=== PATIENT | male | born 1990 | race Caucasian/White ===

== ENCOUNTER → 2020-03-12 09:47 | Outpatient (BNVA) | payer MEDICAID, SELFPAY | PROVIDERS: Family Provider Family Medicine; PCP Family Medicine; Visit Provider Nurse Practitioner Family | DX: Z11.59 Encounter for screening for other viral diseases (principal); G56.01 Carpal tunnel syndrome, right upper limb | CPT/HCPCS: 87635 ==

== ENCOUNTER 2020-03-16 08:53 | Day surgery (SDC) | payer MEDICAID, SELFPAY ==
[2020-03-15 15:49] VITALS: BMI 39.5
[2020-03-16 09:03] VITALS: BP 139/77; PULSE 60; RESP 16; TEMP 36.6; O2SAT 99
[2020-03-16] MEDS: CELEcoxib 200 mg Capsule 400 MG PO (09:34)
[2020-03-16] MEDS: sodium chloride 0.9% 1,000 ML 30 ML IV (09:35)
--- NOTE | 2020-03-16 09:41 | ANES.PREANE2 ---
Pre-Anesthetic Assessment Pre-Anesthetic Assessment: Height/Weight: Height 1.73 m Weight 117.934 kg Temp Pulse Resp BP Pulse Ox 98 F 60 16 139/77 99 03/16/20 09:03 03/16/20 09:03 03/16/20 09:03 03/16/20 09:03 03/16/20 09:03 Preop Diagnosis: Right carpal tunnel syndrome Proposed Procedure: Operation Date: 03/16/20 10:30 Proposed Procedures p Right Carpal Tunnel Release [id number] G56.01(Right) - Yvette Cadena MD Familial anesthetic complications: None Was Beta Rula taken within 24 hours: N/A Last intake: Intake Last Liquid Date 03/15/20 Last Liquid Time 17:00 Last Solid Date 03/15/20 Last Solid Time 17:00 Social: Social History: No alcohol and No tobacco Exam: Pre-Anes Outpt Exam: alert, oriented x 3, clear to auscultation bilaterally and regular rate & rhythm Airway: Cervical ROM: WNL MP: 4 Dentition: Full Additional comments: large neck, full wynn GI: GI: GERD Metabolic: Metabolic: Morbid obesity Neuropsych: Comments: hereditary spastic paraplegia/muscular dystrophy - uses wheelchair for lower extremity weakness/stiffness Anesthetic Plan: ASA status: 3 Anesthesia: MAC and Regional (specify below) Other: [place] block Risk of > 500 ml blood loss (7ml/kg in children): No Meds/Allergies Current Medications: Current Medications Generic Name Dose Route Start Last Admin Trade Name Freq PRN Reason Stop Dose Admin Sodium Chloride 1,000 mls @ 30 ml s/hr 03/16/20 09:00 03/16/20 09:35 Sodium Chloride 0.9% IV 03/17/20 08:59 30 mls/hr .Q24H ANICETO Administration PFSH Anesthesia PFSH: Medical History (Updated 03/12/20 @ 13:18 by Yvette Cadena MD) Arthritis of both knees Arthritis of left acromioclavicular joint Carpal tunnel syndrome, bilateral Rotator cuff impingement syndrome Surgical History History of carpal tunnel release Social History Smoking and tobacco status: current every day smoker cigarettes Quit status (tobacco): has tried quititng Alcohol intake: current Alcohol intake frequency: holidays/special occasions only Data Anesthesia Cardiac Studies: No Data to Display
--- NOTE | 2020-03-16 09:55 | W.PM.OPSUD ---
Surgery/Procedure H&P Update DATE OF PROCEDURE: March 16, 2020 DATE H&P PERFORMED: 03/12/20 H&P UPDATE INFORMATION: I have reviewed H&P completed within last 30 days, I have examined patient prior to procedure, No changes to prior documentation and H&P is in [facility] on date indicated PREOP DIAGNOSIS: Right carpal tunnel syndrome PLANNED PROCEDURE: Operation Date: 03/16/20 10:30 Proposed Procedures p Right Carpal Tunnel Release [id number] G56.01(Right) - Yvette Cadena MD Related Problem List Diagnoses (1) Right carpal tunnel syndrome:
[2020-03-16 10:05] LABS: Basophils # 0.1 10^3/uL (0.0-0.1); Basophils % 0.7 %; Eosinophils # 0.1 10^3/uL (0.0-0.8); Eosinophils % 0.6 %; Hematocrit 47.2 % (42.0-52.0); Hemoglobin 15.5 g/dL (11.7-16.6); Lymphocytes # 2.1 10^3/uL (0.8-4.8); Lymphocytes % 23.8 %; Mean Corpuscular HGB Conc 32.8 g/dL (30.0-36.0); Mean Corpuscular Hemoglobin 29.9 pg (28.0-34.0); Mean Corpuscular Volume 90.9 fL (80-94); Mean Platelet Volume 9.1 fL (7.4-10.4); Monocytes # 0.7 10^3/uL (0.2-0.9); Monocytes % 7.5 %; Neutrophils # 6.05 10^3/uL (1.8-7.7); Neutrophils % 67.2 %; Nucleated Red Blood Cells % 0 %; Platelet Count 360 10^3/cmm (130-400); Red Blood Count 5.19 10^6/uL (4.1-5.3); Red Cell Distribution Width 12.5 % (12.1-15.1)
[2020-03-16 10:29] LABS: Alanine Aminotransferase 17 U/L (0-41); Albumin Level 4.3 g/dL (3.5-5.2); Alkaline Phosphatase 65 IU/L (40-130); Aspartate Amino Transferase 21 U/L (0-40); Blood Urea Nitrogen 10 mg/dL (6-20); Calcium 9.3 mg/dL (8.5-10.5); Carbon Dioxide 26 mmol/L (22-29); Chloride 99 mmol/L (98-107); Globulin 2.8 g/dL (1.3-4.6); Glomerular Filtration Rate 196.6 mL/min (90-130); Glucose 94 mg/dL (65-115); Osmolality Calculated 277 mOsm/kg (285-295); Sodium 134 mmol/L (136-145); Total Bilirubin 0.7 mg/dL (0.15-1.2); Total Protein 7.1 g/dL (6.6-8.7)
[2020-03-16 10:34] LABS: Anion Gap 12.6 (5-19); Potassium 3.6 mmol/L (3.5-5.1)
--- NOTE | 2020-03-16 11:03 | PM.OP ---
Operative Report Date of procedure: March 16, 2020 Pre-op Diagnosis: Right carpal tunnel syndrome Post-op diagnosis: same Post-op Findings: Compression across the carpal canal with fibrous changes within the canal Procedure Done: Right carpal tunnel release Specimens removed/disposition: None Pathology: none sent Surgeon: Yvette Cadena Bindery Machine Setter: None Anesthesia: MAC (With Deisy block) Estimated blood loss (mL): 5 Tourniquet time (min): 30 Tourniquet time: At 250 mmHg IV fluids (mL): 700 Urine output (mL): 0 Urine output: No Love Complications: None Findings: Thickening of the transverse carpal ligament with compression across the median nerve. There also were fibrous changes within the canal. Condition: stable Disposition: same day Brief History: This 29-year-old gentleman presented with complaints of right carpal tunnel syndrome. Approximately a year ago, the patient underwent left carpal tunnel release and this was very successful for him. He presented to the office with complaints similar to the other side, and he had electrodiagnostic findings consistent with carpal tunnel. He therefore wished to proceed with right carpal tunnel release. Risks and complications were discussed with him. Questions were answered. Procedure: The patient was brought to the operating theater. The patient had a Deisy block with MAC. The tourniquet was elevated to 250 mmHg for a total tourniquet time of 30 minutes. The patient was also given Ancef 2 g preoperatively. The arm was then prepped and draped with DuraPrep in usual fashion with the arm draped free. A surgical pause was performed. At the time, the surgical pause, we confirmed the site and side of surgery. We also confirmed the patient's identity, appropriate and timely administration of preoperative antibiotics and preoperative surgical markings. An incision was then made along the thenar crease. The incision crossed the wrist joint in a curvilinear fashion. Dissection continued through skin and soft tissues using a scalpel. The palmaris longus was identified along with the transverse carpal ligament. Each of these was released carefully to avoid injury to the median nerve. We were able to dissect gently into the carpal canal which was noted to be quite tight with significant compression across the median nerve. The nerve was visualized and was an hourglass shape. The canal was subsequently palpated to assure there was no bony encroachment upon the canal. The canal was then palpated distally and proximally to assure that my small finger was passed easily without impingement. Finding this to be so, attention was directed to closure. The wound was irrigated with ropivacaine plain. It was then closed with 3-0 nylon in an interrupted mattress fashion. Sterile dressing was then placed consisting of Xeroform gauze, fluffed fluffs, sterile soft roll, a volar splint, and an Jorgito wrap. The tourniquet was released after 30 minutes. There were no complications. There were no specimens. The procedure was well tolerated. Plan is the patient will be discharged home. Associated Problem List Diagnoses (1) Right carpal tunnel syndrome:
[2020-03-16 11:07] VITALS: BP 133/93; PULSE 79; RESP 16; TEMP 36.2; O2SAT 99
[2020-03-16] MEDS: HYDROcodone-acetaminophen 5-325 mg Tablet 1 TAB PO (11:28)
[2020-03-16 11:29] VITALS: BP 163/88; PULSE 69; RESP 18; O2SAT 99
--- NOTE | 2020-03-16 18:39 | ANE.PACU2 ---
Inpatient post-anesthesia follow up: Airway intact: Yes Vital signs: Temperature 97.1 F Pulse Rate 69 Respiratory Rate 18 Blood Pressure 163/88 Pulse Oximetry 99 Oxygen Delivery Me thod Room Air Oxygen Flow Rate Fraction of Inspir ed Oxygen Hydration adequate: Yes Nausea and vomiting: No Pain level: 1 Mental status: Baseline
== END 2020-03-16 12:22 | disposition home or self-care (01) ==
PROVIDERS: PCP Family Medicine; Visit Provider Specialist
PROC: (CPT 64721; principal; 2020-03-16 10:20)
DX: G56.01 Carpal tunnel syndrome, right upper limb (principal); K21.9 Gastro-esophageal reflux disease without esophagitis; E66.01 Morbid (severe) obesity due to excess calories; Z68.39 Body mass index [BMI] 39.0-39.9, adult; Z99.3 Dependence on wheelchair; F17.210 Nicotine dependence, cigarettes, uncomplicated; M17.0 Bilateral primary osteoarthritis of knee; M19.212 Secondary osteoarthritis, left shoulder
CPT/HCPCS: 64721; 12345; 36415; 80053; 85025; 96365; J0131; J0690; J3010; J3490; J7030

== ENCOUNTER 2023-05-27 10:50 | Outpatient (CLI) | payer MEDICAID, SELFPAY ==
--- NOTE | 2023-05-27 10:54 | XRR_ITS ---
PROCEDURE INFORMATION: Exam: XR Right Shoulder Exam date and time: 05/27/2023 11:00 AM Age: 32 years old Clinical indication: Pain; Shoulder; Bilateral; Additional info: Right shoulder pain TECHNIQUE: Imaging protocol: Radiologic exam of the right shoulder. Views: 2 or more views. COMPARISON: No relevant prior studies available. FINDINGS: Bones/joints: Normal. Soft tissues: Normal. XR/XR shoulder RT min 2V* [id number] IMPRESSION: No acute findings.
--- NOTE | 2023-05-27 10:54 | XRR_ITS ---
PROCEDURE INFORMATION: Exam: XR Left Shoulder Exam date and time: 05/27/2023 11:00 AM Age: 32 years old Clinical indication: Pain; Shoulder; Bilateral; Additional info: Left shoulder pain TECHNIQUE: Imaging protocol: Radiologic exam of the left shoulder. Views: 2 or more views. COMPARISON: No relevant prior studies available. FINDINGS: Bones/joints: Normal. Soft tissues: Normal. XR/XR shoulder LT min 2V* [id number] IMPRESSION: No acute findings.
== END 2023-05-27 10:51 | disposition home or self-care (01) ==
LOC: RAD 10:52
PROVIDERS: PCP Nurse Practitioner Family; Visit Provider Specialist
DX: M25.512 Pain in left shoulder (principal); M25.511 Pain in right shoulder
CPT/HCPCS: 73030

== ENCOUNTER 2023-11-07 14:03 | Emergency (ER) | payer MEDICAID, SELFPAY ==
[2023-11-07 14:08] VITALS: BP 149/77; PULSE 83; RESP 17; TEMP 36.9; O2SAT 98; BMI 37.2
--- NOTE | 2023-11-07 14:29 | XRR_ITS ---
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 Views: 2 or 3 views hip with pelvis when performed. COMPARISON: CR XR lumbar spine 2-3V* [id number] 11/07/2023 2:50 PM FINDINGS: Bones/joints: Unremarkable. No acute fracture. Soft tissues: Unremarkable. XR/XR hip LT 2-3V wo/w pel* [id number] IMPRESSION: No acute findings.
--- NOTE | 2023-11-07 14:29 | XRR_ITS ---
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 Views: 2 or 3 views. COMPARISON: CR XR hip LT 2-3V wo/w pel* [id number] 11/07/2023 2:50 PM FINDINGS: Bones/joints: There is normal anatomic alignment of the lumbar spine. No evidence of a fracture or destructive bone lesion. There is a mild levoscoliosis of the lumbar spine. There are anteriorly projecting osteophytes from the endplates of the lumbar vertebral bodies. Mild disc space narrowing at L5-S1. Soft tissues: Unremarkable. XR/XR lumbar spine 2-3V* [id number] IMPRESSION: Mild chronic degenerative disc disease at L5-S1.
[2023-11-07] MEDS: ketorolac 60 mg/2 mL INJ IM (15:57)
[2023-11-07] MEDS: dexamethasone 10 mg/mL INJ IM (15:57)
[2023-11-07] MEDS: orphenadrine 30 mg/mL Inj 2 mL 60 MG IM (15:57)
--- NOTE | 2023-11-07 16:42 | W.ED.EXTPRO ---
HPI - Extremity Problem General: Chief complaint: Extremity Problem,Nontraumatic Stated complaint: back and left leg pain Time Seen by Provider: 11/07/23 14:48 Source: patient Mode of arrival: wheelchair Limitations: no limitations History of Present Illness: Patient is a 33-year-old male with history of spastic paraplegia who presents to the emergency department complaining of chronic low back pain and left hip pain. States the back pain was exacerbated recently while trying to lift himself into his truck. He reports a history of multiple orthopedic surgeries as well as the hereditary paraplegia, states that he is essentially wheelchair-bound and has been for the past few years. He notes that his wheelchair right now is too small for him and there is a bar that digs into his hip, believes this is causing his hip pain. There is no trauma to report or significant inciting injuries. No specific remedies reported and he is denying any distal radiation of the pain. No other symptoms to report at this time. MD Complaint: joint pain (Left hip/low back) Onset (ago): month(s) Pain Consistency: constant Location: left Radiation: none Relieving factors: rest Exacerbating factors: other (His wheelchair) Associated symptoms: Deny chest pain, fever(s) or rash Review of Systems General: Reports: 10 or more systems reviewed and unremarkable except in HPI and below Const: Denies: fever(s) or chills Card: Denies: chest pain Resp: Denies: dyspnea or productive cough GI: Denies: abdominal pain, nausea, vomiting or diarrhea : Denies: flank pain Musc: Reports: back pain and joint pain; Denies: neck pain, extremity pain, extremity swelling, joint swelling, joint redness, joint warmth, limited range of motion or muscle weakness Skin/Breast: Denies: rash Neuro: Denies: headache(s) PFSH ED PFSH: Medical History Hereditary spastic paraplegia Obesity (BMI 30-39.9) Chronic pain in shoulder Chronic back pain greater than 3 months duration [facility] appointment 05/04/2023 Irritability and anger Scoliosis Insomnia Anxiety and depression Arm numbness left Injury of left rotator cuff Knee pain Right carpal tunnel syndrome 03/16/2020 surgery Rotator cuff impingement syndrome Arthritis of left acromioclavicular joint Arthritis of both knees Surgical History H/O knee surgery History of carpal tunnel release Right side 03/16/2020 and left side 03/2019 Dr. Cadena Social History Quit status (tobacco/nicotine): has tried quititng Alcohol intake: current Alcohol intake frequency: holidays/special occasions only Substance/Drug Use: never Physical Exam Const: COMMON NORMALS: no acute distress, patient oriented x3, no limitations, healthy appearing, alert and well nourished NUTRITIONAL APPEARANCE: obese HENMT: COMMON NORMALS: normocephalic and atraumatic HEAD & SCALP: normocephalic and atraumatic Neck/C-Spine: COMMON NORMALS: full ROM, supple and no meningeal signs Resp: COMMON NORMALS: normal respiratory effort, No use of accessory muscles and clear to auscultation bilaterally AUSCULTATION: clear to auscultation bilaterally Cardio: COMMON NORMALS: regular rate and regular rhythm RATE: regular rate RHYTHM: regular rhythm Back/Pelvis: OTHER: No significant reproducible tenderness to palpation of the low back. No signs of trauma or overlying skin changes. He does have range of motion at the back but does elicit some pain with lateral rotation. No obvious deformity of the left hip joint. Again there is no significant reproducible tenderness to palpation. Extremity: COMMON NORMALS: normal to inspection, capillary refill normal, no joint enlargement and no clubbing, cyanosis or edema NARRATIVE EXTREMITY EXAM: There is some evidence of atrophy of the bilateral lower extremities, likely secondary to immobilization. Neuro: COMMON NORMALS: patient oriented x3, moves all extremities, no focal motor deficits and no sensory deficits noted SENSORIUM/ORIENTATION: Yes alert MENINGEAL SIGNS: Yes no meningeal signs Skin: COMMON NORMALS: no rashes or lesions noted GENERAL SKIN EXAM: no rashes or lesions noted Course Vital Signs: Vital signs: Vital Signs Temperature 98.4 F 11/07/23 17:19 Pulse Rate 79 11/07/23 17:19 Respiratory Rate 16 11/07/23 17:19 Blood Pressure 138/78 11/07/23 17:19 Pulse Oximetry 99 11/07/23 17:19 Oxygen Delivery Me thod Room Air 11/07/23 14:08 MDM - Extremity (Nontraumatic) Medical Decision Making Patient presented with left low back and left hip pain that has been developing over some time, has a pertinent medical history of spastic paraplegia among other bony/joint etiologies. He is wheelchair-bound and states he has been for the past few years due to these diagnoses. States that his wheelchair has been digging into his hip and he believes this is causing his pain, and also believes that he reinjured his back while attempting to lift himself into a truck. X-ray imaging of the hip/pelvis and lumbar spine did not demonstrate any acute abnormalities. I discussed with patient that he needs to get with primary care to have a refitting for a wheelchair, as it does appear that his wheelchair he is in now is entirely too small for his body habitus. He states he can get into see his primary care next week. He also notes improvement of his pain following steroid injection, Toradol, and Norflex. Because of this I will discharge him home and he will continue taking his medications at home as prescribed. Reasons to return were discussed however. Lab Data Radiology Impressions Hip/Pelvis X-Ray 11/07/23 14:29 IMPRESSION: No acute findings. Lumbar Spine X-Ray 11/07/23 14:29 IMPRESSION: Mild chronic degenerative disc disease at L5-S1. All radiology interpretation(s) finalized by discharge Discharge Plan Discharge Patient Disposition: Home Clinical Impression: Chronic low back pain, Contusion of hip, left Condition: Stable Prescriptions: No Action sertraline [Zoloft] 50 mg tablet 50 mg PO DAILY Qty: 90 3RF omeprazole 40 mg capsule,delayed release(DR/EC) See Rx Instructions .ROUTE .COMPLEX Qty: 90 0RF Dose Instruction: TAKE ONE CAPSULE BY MOUTH ONCE DAILY Rx Instructions: TAKE ONE CAPSULE BY MOUTH ONCE DAILY Discharge Orders: Discharge ED (Routine); Ordered 11/07/23 Ordered By: Sony Wesley Referrals: Payal White NP [Primary Care Provider] - Discharge Diet: Usual diet Discharge Activity: Increase activity as tolerated Patient Instructions: Pain Management Activity Restrictions/Additional Instructions: Follow-up with your primary care provider as discussed for further evaluation, including potential refitting for a new wheelchair. Tylenol and ibuprofen at home for pain. Gentle range of motion exercises as tolerated. Return with any new or worsening. Coding Level of Care Code ED Regulation Supervisor for Romaine Chavira
[2023-11-07 17:19] VITALS: BP 138/78; PULSE 79; RESP 16; TEMP 36.9; O2SAT 99
== END 2023-11-07 17:20 | disposition home or self-care (01) ==
PROVIDERS: Emergency Provider Physician Assistant; PCP Nurse Practitioner Family
DX: G89.29 Other chronic pain (principal); S70.02XA Contusion of left hip, initial encounter; G11.4 Hereditary spastic paraplegia; Z99.3 Dependence on wheelchair; W22.8XXA Striking against or struck by other objects, initial encounter
CPT/HCPCS: 72100; 73502; 96372; 99284; J1100; J1885; J2360

== ENCOUNTER → 2024-02-09 11:18 | Outpatient (BNVA) | payer MEDICAID, SELFPAY | PROVIDERS: PCP Nurse Practitioner Family; Visit Provider Nurse Practitioner | DX: S42.292A Other displaced fracture of upper end of left humerus, initial encounter for closed fracture; V89.2XXA Person injured in unspecified motor-vehicle accident, traffic, initial encounter | CPT/HCPCS: 24500; 73030; 99214 ==

== ENCOUNTER → 2024-02-22 14:59 | Outpatient (BNVA) | payer MEDICAID, SELFPAY | PROVIDERS: PCP Nurse Practitioner Family; Visit Provider Nurse Practitioner | DX: S42.292D Other displaced fracture of upper end of left humerus, subsequent encounter for fracture with routine healing; V89.2XXD Person injured in unspecified motor-vehicle accident, traffic, subsequent encounter | CPT/HCPCS: 73030; 99024 ==

== ENCOUNTER → 2024-03-21 14:40 | Outpatient (BNVA) | payer MEDICAID, SELFPAY | PROVIDERS: PCP Nurse Practitioner Family; Visit Provider Nurse Practitioner | DX: S42.292D Other displaced fracture of upper end of left humerus, subsequent encounter for fracture with routine healing (principal); V89.2XXD Person injured in unspecified motor-vehicle accident, traffic, subsequent encounter | CPT/HCPCS: 73060; 99213 ==

== ENCOUNTER → 2024-05-04 14:25 | Outpatient (BNVA) | payer MEDICAID, SELFPAY | PROVIDERS: PCP Nurse Practitioner Family; Visit Provider Nurse Practitioner | DX: S42.292D Other displaced fracture of upper end of left humerus, subsequent encounter for fracture with routine healing (principal); V89.2XXD Person injured in unspecified motor-vehicle accident, traffic, subsequent encounter | CPT/HCPCS: 73060; 99213 ==

== ENCOUNTER → 2024-08-01 13:48 | Outpatient (BNVA) | payer MEDICAID, SELFPAY | PROVIDERS: PCP Nurse Practitioner Family; Visit Provider Nurse Practitioner | DX: S42.292D Other displaced fracture of upper end of left humerus, subsequent encounter for fracture with routine healing (principal); M75.42 Impingement syndrome of left shoulder; M19.012 Primary osteoarthritis, left shoulder; V89.2XXD Person injured in unspecified motor-vehicle accident, traffic, subsequent encounter | CPT/HCPCS: 20610; 73060; 99214; J1100; J2795; J3301; J9999 ==

== ENCOUNTER → 2024-11-28 11:12 | Outpatient (BNVA) | payer MEDICAID, SELFPAY | PROVIDERS: PCP Nurse Practitioner Family; Visit Provider Nurse Practitioner | DX: M19.012 Primary osteoarthritis, left shoulder (principal); S42.292D Other displaced fracture of upper end of left humerus, subsequent encounter for fracture with routine healing; V89.2XXD Person injured in unspecified motor-vehicle accident, traffic, subsequent encounter | CPT/HCPCS: 20610; J1100; J2795; J3301; J9999 ==

== ENCOUNTER 2025-02-05 09:48 | Emergency (ER) | payer MEDICAID, SELFPAY ==
--- OUTSIDE RECORDS SUMMARY | 2025-02-05 09:52 | XMS_ITS | Encounter Summary ---
Author Organization [facility] Address [address] [place] [address] Care Team Providers Care Assistant Foreman Name Role Phone Jeremi Richmond MD Primary Care Provider [phone] Encounter Details Date Type Department Care Team (Latest Contact Info) Description 01/29/2005 Outpatient Historical [facility] Pediatric Neurology[facility] [address] [place] [id number] [place] [address] [facility] [address] [place] [address] Hered spastic paraplegia (Primary Dx) Social History Tobacco Use Types Packs/Day Years Used Date Smoking Tobacco: Never Assessed Sex and Gender Information Value Date Recorded Sex Assigned at Not on file 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
--- OUTSIDE RECORDS SUMMARY | 2025-02-05 09:52 | XMS_ITS | Encounter Summary ---
Author Organization [email or web address] Address [address] [place] [address] Care Team Providers Care Mold Maintenance Technician Name Role Phone Jeremi Richmond MD Primary Care Provider [phone] Encounter Details Date Type Department Care Team (Latest Contact Info) Description 10/08/2004 Outpatient [facility] [place] [address] [facility] [address] [place] [address] Peroneal muscle atrophy (Primary Dx) Social History Tobacco Use Types Packs/Day Years Used Date Smoking Tobacco: Never Assessed Sex and Gender Information Value Date Recorded Sex Assigned at Not on file 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
--- OUTSIDE RECORDS SUMMARY | 2025-02-05 09:52 | XMS_ITS | Clinical Summary ---
Author Organization [facility] Address [address] [place] [address] Phone Care Team Providers Care Truck Packer Name Role Phone Jeremi Richmond MD Primary Care Provider [phone] Allergies No known active allergies Medications baclofen (LIORESAL) 20 mg Oral tablet Take 20 mg by mouth 2 times daily as needed. Splits tab in half and takes four times a day Active OTHER 7.5 mg by Intravitreal route every 4 hours as needed. [place] 7.5-500 Active Misc. Devices Misc MiscIndications :Hemarthrosis, lower leg,Hemarthrosi s, lower leg Wheelchair with swing away/elevated leg rest. Pt has BCBS please use in network provider 1 Each 0 1 Active Walker Misc MiscIndications :Hemarthrosis, lower leg,Hemarthrosi s, lower leg Rolling Walker 1 Each 0 1 Active HYDROcodone-hector taminophen (NORCO) 7.5-325 mg Oral Tab Take 2 Tabs by mouth every 4 hours as needed. 80 Tab 0 1 Active oxyCODONE CR (OXYCONTIN) 10 mg Oral tablet Take 1 Tab by mouth every 12 hours. 10 Tab 0 1 Active warfarin (COUMADIN) 1 mg Oral tablet Take 1 Tab by mouth daily. 45 Tab 0 1 Active aspirin (WALT) 325 mg Oral tablet Take 1 Tab by mouth daily. 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 Gender Identity Not on file Sexual Orientation Not on file Last Filed Vital Signs Vital Sign Reading Time Taken Comments Blood Pressure 129/84 04/17/2011 6:59 AM SPICE ROOM WORKER Pulse 106 04/17/2011 6:59 AM SPICE ROOM WORKER Temperature 37.1 C (98.7 F) 04/17/2011 6:59 AM SPICE ROOM WORKER Respiratory Rate 16 04/17/2011 6:59 AM SPICE ROOM WORKER Oxygen Saturation 94% 04/17/2011 6:59 AM SPICE ROOM WORKER Inhaled Oxygen Concentration - - Weight 122.5 kg (270 lb) 04/14/2011 10:34 AM SPICE ROOM WORKER Height 177.8 cm (5' 10 ) 04/14/2011 10:34 AM SPICE ROOM WORKER Body Mass Index 38.74 04/14/2011 10:34 AM SPICE ROOM WORKER Plan of Treatment Health Maintenance Due Date Last Done Comments DTAP/TDAP/TD VACCINES (1 - Tdap) 2009 HEPATITIS B VACCINES (1 of 3 - 19+ 3-dose series) 09/26 HPV VACCINES (1 - 3-dose SCDM series) 2017 INFLUENZA VACCINE (#1) 2024 Insurance [facility] MEDICARE PART A AND B MEDICAID [place] Advance Directives For more information, please contact: [phone] * Full Code (Latest Code Status on File) Date Activated Date Inactivated Comments 04/14/2011 6:08 PM 04/17/2011 11:30 AM Care Teams Truck Packer Relationship Specialty Start Date End Date Jeremi Richmond MD PCP - General Internal Medicine 04/15/11
--- OUTSIDE RECORDS SUMMARY | 2025-02-05 09:52 | XMS_ITS | Encounter Summary ---
Author Organization [email or web address] [facility] Address [address] [place] [address] Care Team Providers Care Case Coordinator Name Role Phone Jeremi Richmond MD Primary Care Provider [phone] Encounter Details Date Type Department Care Team (Late st Contact Info) Description 10/15/2004 Outpatient Historical [facility] Neurology [address], [address] [place] [phone] Viktor Appiah MD [address] [place] [id number] Muscle weakness (Primary Dx) Social History Tobacco Use Types Packs/Day Years Used Date Smoking Tobacco: Never Assessed Sex and Gender Information Value Date Recorded Sex Assigned at Not on file 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
--- OUTSIDE RECORDS SUMMARY | 2025-02-05 09:52 | XMS_ITS | Clinical Summary ---
Author Organization [email or web address] Address [address] 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
--- OUTSIDE RECORDS SUMMARY | 2025-02-05 09:52 | XMS_ITS | Encounter Summary ---
Author Organization [facility] Address [address] [place] [address] Care Team Providers Care Legal Secretary Name Role Phone Jeremi Richmond MD Primary Care Provider [phone] Encounter Details Date Type Department Care Team (Latest Contact Info) Description 11/13/2004 Outpatient Historical [facility] Operating Room [address] [place] [id number] [place] [id number] [facility] [address] [place] [address] HERED SPASTIC PARAPLEGIA (CMS/HCC) (Primary Dx) Social History Tobacco Use Types Packs/Day Years Used Date Smoking Tobacco: Never Assessed Sex and Gender Information Value Date Recorded Sex Assigned at Not on file Legal Sex 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[employer] Gender Identity Not on file Sexual Orientation Not on file documented as of this encounter Plan of Treatment Not on file documented as of this encounter Procedures Procedure Name Priority Date/Time Associated Diagnosis Comments MISCELLANEOUS LAB TEST Routine 5 12:35 PM CDT documented in this encounter Results * MISCELLANEOUS LAB TEST (11/13/2004 12:35 PM CDT) MISCELLANEOUS LAB TEST INTERFACE SYSTEM Comment: SPASTIN SPG4 AND ATLASTIN SPG3 SENT OT [facility] SEE SEP REPORT 11/13/2004 12:3 5 PM CDT Octavio Vann MD CHEMISTRY ORDERABLES Fi nal Result INTERFACE SYSTEM Refer to clinic/hospital department documented in this encounter Visit Diagnoses Diagnosis 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
--- OUTSIDE RECORDS SUMMARY | 2025-02-05 09:53 | XMS_ITS | Patient Health Record ---
Author Organization [facility] Address [address] [place] [address] Support Name Relationship Address Phone Uday Caldwell Guarantor Unknown [phone] Reason For Referral No Information Medications Medication SIG (Take, Route, Frequency, Duration) Notes Start Date End Date Status tramadol hydrochloride 50 MG Oral Tablet tramadol hydrochloride 50 MG Oral Tablet 03/14/2011 Active Acetaminophen 500 MG / Hydrocodone Bitartrate 7.5 MG Oral Tablet [Lortab 7.5/500] Acetaminophen 500 MG / Hydrocodone Bitartrate 7.5 MG Oral Tablet [Lortab 7.5/500] 04/10/2011 Active Baclofen 10 MG Oral Tablet Baclofen 10 MG Oral Tablet 02/24/2011 Active Plan Of Treatment No Information
[2025-02-05 10:18] VITALS: BP 139/89; PULSE 81; RESP 18; TEMP 36.7; O2SAT 99; BMI 37.3
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
[2025-02-05] MEDS: HYDROcodone-acetaminophen 7.5-325 mg Tablet 1 TAB PO (10:49)
[2025-02-05] MEDS: orphenadrine 30 mg/mL Inj 2 mL 60 MG IM (10:53)
== END 2025-02-05 11:11 | disposition home or self-care (01) ==
PROVIDERS: Emergency Provider Physician Assistant; PCP Nurse Practitioner Family
DX: M54.16 Radiculopathy, lumbar region (principal); Z87.891 Personal history of nicotine dependence
CPT/HCPCS: 96372; 99284; J1100; J1885; J2360; J9999

== ENCOUNTER → 2025-03-06 11:10 | Outpatient (BNVA) | payer MEDICAID, SELFPAY | PROVIDERS: PCP Nurse Practitioner Family; Visit Provider Nurse Practitioner | DX: M19.011 Primary osteoarthritis, right shoulder (principal); M19.012 Primary osteoarthritis, left shoulder; M67.911 Unspecified disorder of synovium and tendon, right shoulder | CPT/HCPCS: 20610; 73030; 99214; J1100; J2795; J3301; J9999 ==